=== PATIENT | female | born 1990 | race African-American/Black ===

== ENCOUNTER 2019-03-25 15:03 | Emergency (ER) | payer OTHER, MEDICAID ==
[~2019-03-25] VITALS: Ht 149.9 cm; Wt 68.0 kg
[2019-03-25] MEDS ORDERED: ACCUNEB SO1.25 MG/1 INH (15:13)
[2019-03-25] MEDS ORDERED: FLONASE 0.05%50 MCG NASAL (16:34)
[2019-03-25] MEDS ORDERED: AMOXICILLIN875 MG PO (16:34)
[2019-03-25 16:59] VITALS: BP 109/65
== END 2019-03-25 17:03 | disposition home or self-care (01) ==
LOC: M.ERS 15:03
DX: H66.92 Otitis media, unspecified, left ear (principal); J31.0 Chronic rhinitis; G43.909 Migraine, unspecified, not intractable, without status migrainosus; J45.909 Unspecified asthma, uncomplicated; Z98.890 Other specified postprocedural states